=== PATIENT | female | born 2000 | race Caucasian/White ===

== ENCOUNTER 2019-01-20 19:52 | Emergency (ER) | payer OTHER ==
[~2019-01-20] VITALS: Ht 160 cm; Wt 61.4 kg
[2019-01-20 20:17] VITALS: TEMP 97.8
[2019-01-20 22:44] VITALS: BP 115/82; PULSE 85
== END 2019-01-20 22:45 | disposition home or self-care (01) ==
LOC: COL.ER 19:52
DX: S21.012A Laceration without foreign body of left breast, initial encounter (principal); F41.9 Anxiety disorder, unspecified; J45.909 Unspecified asthma, uncomplicated; W18.2XXA Fall in (into) shower or empty bathtub, initial encounter